=== PATIENT | female | born 1990 | race African-American/Black ===

== ENCOUNTER 2017-03-15 18:09 | Emergency (ER) | payer OTHER ==
[~2017-03-15] VITALS: Ht 149.9 cm; Wt 68.0 kg
== END 2017-03-15 19:39 | disposition home or self-care (01) ==
LOC: CFTX 18:09 → CED 18:09 → CFTX 19:29
DX: L02.412 Cutaneous abscess of left axilla (principal)
CPT/HCPCS: 99283